=== PATIENT | male | born 1950 | race Caucasian/White ===

== ENCOUNTER 2024-07-04 05:35 | Day surgery (SDC) | payer MEDICARE ==
[2024-07-01 11:37] VITALS: BP 152/78; PULSE 65; RESP 18; TEMP 97.3
[2024-07-01 11:40] LABS: BASOPHILS # (AUTO) 0.07 K/uL (0.00-0.20); BASOPHILS % (AUTO) 0.6 % (0.0-5.0); EOSINOPHILS # (AUTO) 0.15 K/uL (0.00-0.70); EOSINOPHILS % (AUTO) 1.3 % (0.0-8.0); HEMATOCRIT 48.6 % (42-54); LYMPHOCYTES # (AUTO) 1.9 K/uL (1.0-4.8); LYMPHOCYTES % (AUTO) 16.2 % (21.0-51.0); MEAN CORPUSCULAR HEMOGLOBIN 26.4 pg (27.0-33.0); MEAN CORPUSCULAR HGB CONC 30.7 g/dL (32.0-36.0); MONOCYTES # (AUTO) 1.1 K/uL (0.1-1.0); MONOCYTES % (AUTO) 8.8 % (3.0-13.0); NEUTROPHILS # (AUTO) 8.6 K/uL (1.8-7.7); NEUTROPHILS % (AUTO) 72.3 % (40.0-77.0); PLATELET COUNT (AUTO) 287 K/uL (130-400); RED BLOOD CELL COUNT(AUTO) 5.65 MIL/uL (4.50-6.20); RED CELL DISTRIBUTION WIDTH 15.7 % (11.0-15.5); WHITE BLOOD COUNT (AUTO) 11.9 K/uL (4.8-10.8)
[2024-07-01 11:50] LABS: INR 1.14 (0.85-1.15); PROTHROMBIN TIME 12.2 SEC (9.6-11.6)
[2024-07-01 11:52] LABS: PARTIAL THROMBOPLASTIN TIME 27.5 SEC (26.3-35.5)
[2024-07-01 11:58] LABS: CREATININE 0.8 mg/dL (0.5-1.3); POTASSIUM 4.4 mmol/L (3.5-5.1)
[2024-07-01 12:02] LABS: APPEARANCE,URINE CLEAR (CLEAR); BILIRUBIN,URINE NEGATIVE (NEGATIVE); COLOR,URINE LIGHT-YELLOW (YELLOW); GLUCOSE, URINE (UA) NEGATIVE (NEGATIVE); KETONES,URINE NEGATIVE (NEGATIVE); LEUKOCYTE ESTERASE ,URINE NEGATIVE Leu/uL (NEGATIVE); NITRATE,URINE NEGATIVE (NEGATIVE); OCCULT BLOOD,URINE NEGATIVE (NEGATIVE); PH,URINE 5.5 (5.0-8.0); PROTEIN,URINE NEGATIVE (NEGATIVE); UROBILINOGEN,URINE 0.2 mg/dL (0.2-1.0)
[2024-07-01 12:03] LABS: ADD UA MICROSCOPIC NO
--- NOTE | 2024-07-01 12:18 | HMCIMG ---
CHEST 1VW HISTORY: Preop COMPARISON: 03/04/2023 FINDINGS: A frontal projection of the chest was obtained. No acute pulmonary infiltrates is seen. The heart is borderline enlarged. Degenerative changes are seen. No evidence of aortic calcification is seen. IMPRESSION: 1. No acute pulmonary infiltrate is seen.
[2024-07-01 12:24] LABS: B-TYPE NATRIURETIC PEPTIDE 64 pg/mL (0-100)
--- NOTE | 2024-07-01 14:00 | NUR ---
RE: ORDER REPORTED TO DR ROBLEDO THAT ORDER SAYS FEMORAL APPROACH BUT H/P SAYS RADIAL APPROACH AND PATIENT STATES THAT HEART CATH WILL BE DONE VIA RADIAL APPROACH. PER DR ROBLEDO, HE WILL ASSESS PATIENT ON THURSDAY AND DECIDE THEN.
--- NOTE | 2024-07-01 18:58 | EKG ---
[facility] Test Date: 2024-07-01 Test Time: 12:23:39 Pat Name: JORGE LUIS GONZALEZ Department: [facility] Room: Gender: M Qc Lab Technician: [id number] : 1950 Requested By: Bradley ROBLEDO Order Number: [id number] Reading MD: Florin Chavez Measurements Intervals [place] Rate: 65 P: 27 VA: 134 QRS: 27 QRSD: 137 T: 3 QT: 414 QTc: 431 Interpretive Statements Sinus rhythm Right bundle branch block Compared to ECG 03/04/2023 08:49:08 No significant changes Electronically Signed On 07-01-2024 19:10:48 PROFESSOR OF OCEANOGRAPHY by Florin Chavez Please click the below link to view image of tracing.
[2024-07-04] VITALS (9 sets, daily range): BP systolic 93–147; BP diastolic 46–73; PULSE 53–74; RESP 10–18; TEMP 96.8–97.3
[~2024-07-04] VITALS: Ht 188 cm; Wt 130.6 kg
[~2024-07-04 05:35] MED LIST: ASPI-1197 PO; ATOR40TA69 PO; CLOP75TA32 PO; ERGO500093 PO; GLIM2TAB30 PO; LUTE20CA PO; METF-446 PO; METO-408 PO
[2024-07-04] MEDS: 0.9%NACL 1000ML 1,000 ML IV ONE (07:32)
[2024-07-04] MEDS ORDERED: LOSA50TA64 PO (08:06)
[2024-07-04] MEDS ORDERED: IOHEXOL 350 MG/ML 100ML INFUS..BTL IV ONE ×2 (08:51→09:15)
[2024-07-04] MEDS ORDERED: LIDOCAINE HCL 400MG/20ML VIAL ONE (08:51)
[2024-07-04] MEDS ORDERED: NITROGLYCERIN 50MG VIAL ONE (08:51)
[2024-07-04] MEDS ORDERED: HEParin-NS 1,000 UNIT/500 ML 1,000 ML IV ONE (08:51)
[2024-07-04] MEDS ORDERED: SODIUM BICARB 50MEQ 50ML VIAL 50 ML ONE (08:55)
[2024-07-04] MEDS ORDERED: HEParin 10,000 UNIT/10ML (1,000 UNIT/ML) VIAL ONE (09:15)
[2024-07-04] MEDS ORDERED: MIDAZOLAM HCL 1 MG/ML 2ML VIAL ONE ×2 (09:26→09:31)
[2024-07-04] MEDS ORDERED: MEPERIDINE-PF 25 MG/ML SYG ONE ×2 (09:26→09:31)
[2024-07-04] MEDS ORDERED: DEXTROSE 50%-WATER 50 ML DISP.SYRIN IV PRN (10:30)
[2024-07-04] MEDS: INSULIN humuLIN R 100 UNIT/ML 3ML SQ SCH (11:05)
--- NOTE | 2024-07-04 11:17 | CCATH ---
PROCEDURES: * Left heart catheterization. * Selective right and left coronary arteriogram. * Balloon angioplasty of the first diagonal branch of the LAD (POBA). * Conscious sedation. INDICATIONS: * Known history of coronary artery disease. * Status post remote multivessel stenting. * Recurrent angina. * Markedly abnormal Cardiolite scan. COMPLICATIONS: None. TOTAL CONTRAST: Approximately 85 mL APPROACH: Right radial approach. DESCRIPTION OF PROCEDURE: The patient was taken to the cardiac catheterization lab after the appropriate operative consents were signed. He was prepped and draped in the usual fashion. After conscious sedation was administered, the right radial artery region was infiltrated with 2% Xylocaine without epinephrine. A 6-Czech slender radial sheath was advanced in retrograde fashion with modified Seldinger technique. A TIG 4 catheter was advanced and positioned over an indwelling wire. It was placed in the left ventricular cavity. Left ventricular end-diastolic pressure measurement was obtained. Ventriculography was deferred. The patient has preserved ventricular systolic function by noninvasive studies. At this point, the catheter was withdrawn across the aortic valve and there was no significant gradient. The catheter was engaged in the ostium of the right coronary artery. This was imaged identifying a nondominant vessel that gave rise to an acute marginal branch. The catheter was then repositioned and engaged in the ostium of the left main. The left main was a moderately large vessel that was short in its course and free of significant stenotic lesions. It had some calcification and bifurcated into an LAD, and a circumflex. The LAD was a large vessel that gave rise to several diagonals and septal perforators. The LAD had stents in the proximal to mid segment with jailing of the first diagonal. The LAD was noted to have a 30% stenotic lesion just after the first diagonal. The distal LAD was free of disease. The first diagonal was a moderately sized vessel from prior studies and had a stent in its proximal ostial segment. The stent was 100% occluded with minimal antegrade flow. Circumflex was a large vessel that was dominant, it gave rise to marginal branch and ongoing circumflex with a left PDA PLVB, which were normal. The proximal and mid circumflex had patent stents. The mid to distal circumflex had a 40% stenotic lesion. There was a tiny OM1 that was 100% occluded that had been identified as a tiny vessel from prior studies. The OM2 was a large branching vessel that was free of disease. At this point, given the patient's abnormal Cardiolite scan and recurrent anginal symptoms, we elected to proceed with intervention for the first diagonal, which was treated with angioplasty and stenting before. At this point, an XB 3 was utilized and engaged in the ostium of the left main. After full heparinization, a 0.014 wire was advanced and crossed the ostial segment of the first diagonal and placed in the branches of the diagonal. This was followed by placement of a 2.25 NC balloon, which was inflated to 20 atmospheres at 2.36 mm size with a good final angiographic results. The flow was reestablished and the patient had a TAMRA-3 flow at the end. At this point, the catheter was withdrawn, procedure was completed and the catheter was withdrawn over an indwelling wire. The patient tolerated the procedure well. Radial band was applied with good hemostasis. The patient left the medical lab assistant in stable condition. FINAL IMPRESSION: * Severe coronary artery disease. * Recurrent angina. * Abnormal Cardiolite scan. * Patent left anterior descending and circumflex stents. * 100% occlusion of the first diagonal. * Status post successful balloon angioplasty of the diagonal 1 with a 2.25 x 20 NC balloon inflated to 20 atmospheres at 2.36 mm size with good final angiographic results. PLAN: Continue medical management. TID: [id number] RECEIPT: [id number]
[2024-07-04] MEDS: 0.9%NACL 1000ML 1,000 ML IV SCH (13:07)
--- NOTE | 2024-07-04 13:15 | NUR ---
vasc band: vasc band removed with no active bleeding present. cleansed puncture site with chlor prep followed by applying sterile 2x2 gauze then 2x2 tega derm. no redness.swelling noted to surrounding area rt wrist.
== END 2024-07-04 14:10 | disposition home or self-care (01) ==
LOC: DAH 05:35
PROVIDERS: ATTEND Internal Medicine Cardiovascular Disease
DX: I25.118 Atherosclerotic heart disease of native coronary artery with other forms of angina pectoris (principal); T82.855A Stenosis of coronary artery stent, initial encounter; I45.10 Unspecified right bundle-branch block; G47.33 Obstructive sleep apnea (adult) (pediatric); I10 Essential (primary) hypertension; E78.5 Hyperlipidemia, unspecified; E66.9 Obesity, unspecified; Z99.89 Dependence on other enabling machines and devices; Z90.49 Acquired absence of other specified parts of digestive tract; Z85.038 Personal history of other malignant neoplasm of large intestine; Z95.5 Presence of coronary angioplasty implant and graft; Z79.01 Long term (current) use of anticoagulants; Z68.37 Body mass index [BMI] 37.0-37.9, adult; Z79.84 Long term (current) use of oral hypoglycemic drugs; Z79.82 Long term (current) use of aspirin; Z79.899 Other long term (current) drug therapy; Y82.8 Other medical devices associated with adverse incidents
CPT/HCPCS: 80048; 83880; 85025; 85610; 85730; 81003; 36415; 71045; 93005; 92920; 82948 ×2; 93458; J1815; C1769 ×2; C1894 ×2; A4649; C1887; C1725; J3490 ×3; J7030; J1644 ×2; J2250 ×2; J2175 ×2; Q9967 ×2; A4215; A4222; A6260; A4221; A4663; A4216; A6206; A4606; Q9965 ×2; A4223 ×3; 96360; 96361; 99156; 99157